=== PATIENT | female | born 1980 | race Caucasian/White ===

== ENCOUNTER 2017-09-10 10:23 | Emergency (ER) | payer OTHER ==
[~2017-09-10] VITALS: Ht 162.6 cm; Wt 90.6 kg
[~2017-09-10 10:23] MED LIST: AMOX-291; DOCU-131 PO; HYDR-3240 PO; IBUP-1222 PO; LABE100T3 PO
[2017-09-10] MEDS ORDERED: ONDANSETRON 2MG/ML, 2ML ONE (10:56)
[2017-09-10] MEDS ORDERED: HYDROmorphone 1 MG/ML, 1ML ONE (10:56)
[2017-09-10] MEDS ORDERED: KETOROLAC 30 MG/1 ML ONE (10:56)
[2017-09-10] MEDS ORDERED: ONDANSETRON 2MG/ML, 2ML IVPush ONE (11:00)
[2017-09-10] MEDS ORDERED: SODIUM CHLORIDE 0.9% 1,000ML IVBOLUS ONE (11:00)
[2017-09-10] MEDS ORDERED: KETOROLAC 30 MG/1 ML IVPush ONE (11:00)
[2017-09-10] MEDS ORDERED: SODIUM CHLORIDE FLUSH 10ML SYR IVF ONE (11:00)
[2017-09-10] MEDS ORDERED: HYDROmorphone 1 MG/ML, 1ML IVPush ONE (11:00)
[2017-09-10 11:45] LABS: HEMATOCRIT 43.4 % (34.6-47.8); HEMOGLOBIN 14.6 g/dL (11.7-16.4); WHITE BLOOD COUNT 10.6 x10^3/uL (3.4-10)
[2017-09-10 11:50] LABS: ASPARTATE AMINO TRANSFERASE 7 U/L (15-37); BLOOD UREA NITROGEN 9 mg/dL (7-18)
[2017-09-10 14:07] VITALS: BP 124/80
== END 2017-09-10 14:09 | disposition home or self-care (01) ==
LOC: ED 11:21
DX: O03.9 Complete or unspecified spontaneous abortion without complication (principal)
CPT/HCPCS: 36415; 76801; 80053; 85025; 96361; 96374; 96375; 99285; J1170; J1885; J2405; J7030